=== PATIENT | female | born 1970 | race Caucasian/White ===

== ENCOUNTER 2017-06-26 08:59 | Emergency (ER) | payer BC, OTHER ==
--- NOTE | 2017-06-26 09:26 | Emergency Department Record ---
History of Present Illness - General Chief complaint: Rash Stated complaint: RASH ON HANDS Time Seen by Provider: 06/26/17 09:13 Source: Patient Mode of Arrival: Ambulatory Limitations: No limitations - History of Present Illness Initial comments: The patient is here due to a rash on her L hand for 5 days. It started at the end of last week and then cleared up over the weekend and now is back again. The rash is only on the back of the L hand and spares the palm of the L hand and the entire R hand. She denies any new medicines, skin products, work conditions, pets or foods. She does work at [employer] and is wearing new gloves recently and does come in contact with certain chemicals but nothing really is new. There is no reported itching with the rash and no significant pain. MD complaint: Rash Onset/Timin -: Days(s) Location: L hand Severity: Mild Consistency: Other Improves with: Topical medication Worsens with: None Context: Other - Related Data Home Medications Medication Instructions Recorded Confirmed Last Taken Escitalopram Oxalate [Lexapro] 20 mg PO QHS 06/26/17 06/26/17 06/25/17 Previous Rx's Medication Instructions Recorded Triamcinolone Acetonide [Triderm] 85.2 gm TP BID #1 cream..g. 06/26/17 Allergies Allergy/AdvReac Type Severity Reaction Status Date / Time Sulfa (Sulfonamide Allergy RASH Verified 06/26/17 09:13 Antibiotics) Travel Screening - Travel/Exposure Within Last 30 Days Have you traveled within the last 30 days?: No - Travel/Exposure Within Last Year Have you traveled outside the [place] in the last year?: No - Additonal Travel Details Have you been exposed to anyone with a communicable illness?: No - Travel Symptoms Symptom Screening: None Review of Systems Constitutional: Denies: Chills, Fever Past Medical History - SOCIAL HISTORY Smoking Status: Current every day smoker Alcohol Use: None Drug Use: None - RESPIRATORY Hx Respiratory Disorders: No - CARDIOVASCULAR Hx Cardio Disorders: No - NEURO Hx Neuro Disorders: No - GI Hx GI Disorders: No - Hx Genitourinary Disorders: No - ENDOCRINE Hx Endocrine Disorders: No - MUSCULOSKELETAL Hx Musculoskeletal Disorders: No - PSYCH Hx Psych Problems: Yes Hx Anxiety: Yes - HEMATOLOGY/ONCOLOGY Hx Hematology/Oncology Disorders: No Family Medical History Any Significant Family History?: No Physical Exam - General General Appearance: Alert, Cooperative, No acute distress - Head Head exam: Atraumatic, Normocephalic - Eye Eye exam: Normal appearance, PERRL - Extremities Extremities exam: Full ROM, Normal capillary refill. negative: Normal inspection (There are scattered area of patchy and minimally scaley erythema to the dorsal L hand and fingers. The lesions are not tender or pruritic. There is no petechiae.), Joint swelling, Tenderness - Neurological Neurological exam: Alert. negative: Motor sensory deficit Course Vital Signs 06/26/17 09:06 Temperature 97.6 F Pulse Rate 71 Respiratory 18 Rate Blood Pressure 116/67 Pulse Ox 98 - Reevaluation(s) Reevaluation #1: I explained to the patient that she may have a contact dermatitis but that it is a little unclear at this time. We will start her on a steroid cream and have her F/U at an next week for recheck. 06/26/17 09:33 Disposition Disposition: Discharge Clinical Impression: Skin rash Disposition: Home, Self-Care Condition: (2) Stable Instructions: Acute Rash (ED) Additional Instructions: Please use the steroid cream as directed. Please follow up at the urgent care next week for recheck. Return to the ER for any worsening issues. Prescriptions: Triamcinolone Acetonide [Triderm] 85.2 gm TP BID #1 cream..g. Forms: Patient Portal Access Time of Disposition: 09:26 Quality - Quality Measures Quality Measures: N/A - Blood Pressure Screening View Details: Yes Does Patient Have Any of the Following: No Blood Pressure Classification: Normal BP Reading Systolic Measurement: 116 Diastolic Measurement: 67 Screening for High Blood Pressure: < Normal BP, F/U Not Required > [[id number]]
== END 2017-06-26 09:38 | disposition home or self-care (01) ==
LOC: ER 08:59
DX: R21 Rash and other nonspecific skin eruption (principal); F17.210 Nicotine dependence, cigarettes, uncomplicated
CPT/HCPCS: 99282